=== PATIENT | male | born 1975 | race Caucasian/White ===

== ENCOUNTER 2019-10-26 03:19 | Emergency (ER) | payer OTHER ==
[~2019-10-26] VITALS: Ht 188 cm; Wt 113.4 kg
[~2019-10-26 03:19] MED LIST: ALEVE220 MG; ALLOPURINOL 30300 M2 PO; AMOXICILLIN 50500 MG PO; IBUPROFEN 200200 M1; MOBIC; NAPROSYN500 MG PO; PERCOCET 5-3251 EACH PO; VICODIN
[2019-10-26] MEDS ORDERED: OMEPRAZOLE 20 M20 M1 PO (03:34)
[2019-10-26] MEDS ORDERED: CELEXA 20 MG TA20 MG PO (03:34)
[2019-10-26 03:59] LABS: ABSOLUTE BASOPHILS 0.1 thou/uL (0.0-0.2); ABSOLUTE EOSINOPHILS 0.3 thou/uL (0.0-0.7); ABSOLUTE LYMPHOCYTES 2.9 thou/uL (0.8-5.3); ABSOLUTE MONOCYTES 0.9 thou/uL (0.0-1.2); ABSOLUTE NEUTROPHILS 5.6 thou/uL (1.6-8.1); BASOPHILS 0.9 %; EOSINOPHILS 2.8 %; HEMATOCRIT 43.1 % (42.0-52.0); HEMOGLOBIN 14.8 gm/dL (14.0-18.0); LYMPHOCYTES 29.8 %; MCH 28.7 pg (26.0-34.0); MCHC 34.2 g/dL (28.0-37.0); MCV 83.8 fL (80.0-100.0); MONOCYTES 9.4 %; MPV 8.7 fl. (7.2-11.1); NUCLEATED RBCS 0 /100WBC; PLATELET COUNT* 256 thou/uL (150-400); POLYS 57.1 %; RBC 5.15 mil/uL (4.50-6.00); RDW-CV 13.3 % (10.5-14.5); WBC 9.8 thou/uL (4.0-11.0)
[2019-10-26 04:17] LABS: CALCIUM 8.3 mg/dL (8.5-10.1); CREATININE 1.1 mg/dL (0.6-1.3); POTASSIUM 3.8 mmol/L (3.5-5.1)
[2019-10-26 04:21] LABS: ALBUMIN 3.8 g/dL (3.4-5.0); TOTAL BILIRUBIN 0.4 mg/dL (<0.1-1.0); TOTAL PROTEIN 7.3 g/dL (6.4-8.2)
[2019-10-26 04:22] LABS: APTT 28.5 Seconds (25.0-31.3); INR 1.1
[2019-10-26] MEDS ORDERED: ZOFRAN ODT4 MG PO (06:20)
[2019-10-26 06:32] VITALS: BP 139/87
--- NOTE | 2019-10-26 16:33 | EKG ---
[place] [address] ELECTROCARDIOGRAM REPORT Name: EVIE LUNDY Room: [facility]#: [id number] Admission: 10/26/19 Attend Phys: Discharge: 10/26/19 Date of : 75 Date of Service: 10/26/19322 Report #: [id number] THIS REPORT FOR: //name// [facility] ED Test Date: 2019-10-26 Test Time: 03:23:55 Pat Name: EVIE LUNDY Department: Room: Gender: Commercial Real Estate Agent: : 1975 Requested By: Debi Miner Order Number: [id number] MD: Aniket Martinez Measurements Intervals [place] Rate: 42 P: 11 NV: 155 QRS: 2 QRSD: 100 T: 20 QT: 469 QTc: 392 Interpretive Statements Sinus bradycardia No previous ECG available for comparison Electronically Signed On 10-26-2019 16:32:15 CDT by Aniket Martinez [email or web address] <ELECTRONICALLY SIGNED> By: Aniket Martinez MD, [facility] 10/26/19 1632 2 2 Aniket Martinez MD, FACC /EPI
== END 2019-10-26 06:32 | disposition home or self-care (01) ==
LOC: M.ERS 03:19
PROVIDERS: Personal Emergency Response Attendant
DX: R10.13 Epigastric pain (principal); R11.2 Nausea with vomiting, unspecified; G43.909 Migraine, unspecified, not intractable, without status migrainosus; M10.9 Gout, unspecified

== ENCOUNTER 2020-05-04 12:38 | Emergency (ER) | payer OTHER ==
[~2020-05-04] VITALS: Ht 190.5 cm; Wt 115.7 kg
[~2020-05-04 12:38] MED LIST changes: +CELEXA 20 MG TA20 MG PO; +OMEPRAZOLE 20 M20 M1 PO; +ZOFRAN ODT4 MG PO
[2020-05-04 13:11] LABS: URINE BILIRUBIN NEGATIVE (Negative); URINE BLOOD 2+ (Negative); URINE CLARITY CLEAR; URINE COLOR YELLOW; URINE GLUCOSE-RANDOM NEGATIVE (Negative); URINE KETONES 2+ (Negative); URINE LEUKOCYTES-REFLEX NEGATIVE (Negative); URINE NITRITE-REFLEX NEGATIVE (Negative); URINE PROTEIN NEGATIVE (Negative); URINE SPECIFIC GRAVITY 1.025 (1.005-1.030); URINE UROBILINOGEN 0.2 E.U./dl (0.2-1.0)
[2020-05-04 13:19] LABS: CALCIUM 8.9 mg/dL (8.5-10.1); CREATININE 1.2 mg/dL (0.6-1.3); POTASSIUM 3.2 mmol/L (3.5-5.1)
[2020-05-04 13:21] LABS: BACTERIA-REFLEX 1-9 Few /HPF (None Seen); CASTS None Seen /LPF (None Seen); CRYSTALS None Seen /LPF (None Seen); SQUAMOUS 0-3 Few /LPF (0-3); URINE RBC 3-10 Few /HPF (0-2); URINE WBC-REFLEX 0-5 Rare /HPF (0-5)
[2020-05-04 13:24] LABS: ALBUMIN 4.2 g/dL (3.4-5.0); TOTAL BILIRUBIN 0.9 mg/dL (<0.1-1.0); TOTAL PROTEIN 7.5 g/dL (6.4-8.2)
[2020-05-04 14:00] LABS: ABSOLUTE BASOPHILS 0.1 thou/uL (0.0-0.2); ABSOLUTE EOSINOPHILS 0.1 thou/uL (0.0-0.7); ABSOLUTE LYMPHOCYTES 1.6 thou/uL (0.8-5.3); ABSOLUTE MONOCYTES 0.5 thou/uL (0.0-1.2); ABSOLUTE NEUTROPHILS 4.6 thou/uL (1.6-8.1); BASOPHILS 0.8 %; HEMATOCRIT 43.2 % (42.0-52.0); HEMOGLOBIN 15.1 gm/dL (14.0-18.0); LYMPHOCYTES 22.9 %; MCH 29.1 pg (26.0-34.0); MCHC 34.9 g/dL (28.0-37.0); MCV 83.5 fL (80.0-100.0); MONOCYTES 7.4 %; MPV 8.6 fl. (7.2-11.1); NUCLEATED RBCS 0 /100WBC; PLATELET COUNT* 270 thou/uL (150-400); POLYS 66.9 %; RBC 5.17 mil/uL (4.50-6.00); RDW-CV 13.2 % (10.5-14.5); WBC 6.9 thou/uL (4.0-11.0)
[2020-05-04] MEDS ORDERED: ONDANSETRON ODT4 MG PO (15:29)
[2020-05-04] MEDS ORDERED: FLOMAX0.4 MG PO (15:29)
[2020-05-04] MEDS ORDERED: NORCO 5-325 TA1 EAC2 PO (15:29)
--- NOTE | 2020-05-04 15:30 | EKG ---
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1975 Requested By: Alda Glasgow Order Number: [id number] MD: Aniket Martinez Measurements Intervals [place] Rate: 42 P: 32 FL: 81 QRS: 19 QRSD: 110 T: 30 QT: 489 QTc: 409 Interpretive Statements Sinus bradycardia Short [place] interval Compared to ECG 10/26/2019 03:23:55 Short [place] interval now present Electronically Signed On 05-04-2020 15:30:11 CDT by Aniket Martinez [email or web address] <ELECTRONICALLY SIGNED> By: Aniket Martinez MD, [facility] 05/04/20 1530 1309 1309 Aniket Martinez MD, [facility] /EPI
[2020-05-04 15:40] VITALS: BP 138/78
== END 2020-05-04 15:41 | disposition home or self-care (01) ==
LOC: M.ERS 12:38
PROVIDERS: Emergency Medicine Emergency Medical Services; Physician Assistant
DX: N20.0 Calculus of kidney (principal); G43.909 Migraine, unspecified, not intractable, without status migrainosus; M10.9 Gout, unspecified; Z98.84 Bariatric surgery status